=== PATIENT | female | born 1955 ===

== ENCOUNTER 2018-08-06 09:48 | Outpatient (CLI) | payer OTHER | END 2018-08-06 09:49 | disposition home or self-care (01) | LOC: C.DEXAIC 09:49 ==

== ENCOUNTER 2018-08-07 09:42 | Outpatient (CLI) | payer OTHER | END 2018-08-07 09:43 | disposition home or self-care (01) | LOC: C.CTH 09:43 ==

== ENCOUNTER 2018-08-19 08:24 | Outpatient (CLI) | payer OTHER | END 2018-08-19 08:25 | disposition home or self-care (01) | LOC: C.MAMMO 08:25 ==

== ENCOUNTER 2018-08-28 07:06 | Outpatient (CLI) | payer OTHER | END 2018-08-28 07:07 | disposition home or self-care (01) | LOC: C.LAB 07:06 ==